=== PATIENT | male | born 1965 | race Caucasian/White ===

== ENCOUNTER 2016-11-21 05:39 | Outpatient (CLI) | payer OTHER ==
[~2016-11-21] VITALS: Ht 184.2 cm; Wt 104.3 kg
[2016-11-21] MEDS ORDERED: ASPI-586 PO ×2 (13:50)
[2016-11-21] MEDS ORDERED: VALS1TAB5 PO ×2 (13:50)
[2016-11-21] MEDS ORDERED: ROSU10TA PO ×2 (13:50)
== END 2016-11-21 13:52 ==
LOC: PREOP 05:39
PROVIDERS: ATTEND Surgery
DX: Z01.818 Encounter for other preprocedural examination; Z12.11 Encounter for screening for malignant neoplasm of colon

== ENCOUNTER 2016-11-23 08:32 | Day surgery (SDC) | payer OTHER ==
[~2016-11-23] VITALS: Ht 184.2 cm; Wt 104.3 kg
[~2016-11-23 08:32] MED LIST: ASPI-586 PO; ROSU10TA PO; VALS1TAB5 PO
[2016-11-23 08:35] VITALS: BP 125/88
--- OUTSIDE RECORDS SUMMARY | 2016-11-23 08:36 | XMS REPORT | Continuity of Care Document ---
Author Author [facility] Organization [facility] Address Unknown Phone Unavailable Care Team Providers [facility] Worker Name Role Phone AlexanderShon ospina PCP [phone] Source Comments Some departments are not documenting in the electronic medical record. If you do not see the information that you expected, contact Release of Information in the Health Information Management department at [phone] for further assistance in locating additional records.[facility] Active Allergies and Adverse Reactions Allergen Noted Date Severity Reactions Comments Naproxen 06/12/2015 Low SEE COMMENTS Swollen Joints Current Medications Prescription Sig. Disp. Refills Start End Date Status Date rosuvastatin (CRESTOR) 10 Take 10 mg by mouth Active mg tablet daily. valsartan (DIOVAN) 160 mg Take 160 mg by mouth Active tablet daily. Active Problems Problem Noted Date Sleep apnea 06/15/2015 HTN (hypertension) 06/12/2015 Hypercholesteremia 06/12/2015 Palpitation 06/12/2015 Overview: 06/12/2015 - 48 hr Holter - started 06/12/2015 Social History Tobacco Use Types Packs/Day Years Used Date Never Smoker Alcohol Use Drinks/Week oz/Week Comments Yes socially Last Filed Vital Signs Vital Sign Reading Time Taken Blood Pressure 116/86 10/02/2015 10:01 AM CDT Pulse 84 10/02/2015 9:56 AM CDT Temperature - - Respiratory Rate - - Height 1.829 m (6' 0.01") 10/02/2015 9:56 AM CDT Weight 104.146 kg (229 lb 9.6 10/02/2015 9:56 AM CDT oz) Body Mass Index 31.13 10/02/2015 9:56 AM CDT Oxygen Saturation 98% 10/02/2015 9:56 AM CDT Plan of Care Health Maintenance Due Date Last Done Comments Physical (Comprehensive) 1972 Exam Pertussis Vaccine 1976 Tetanus Vaccine 1982 Colorectal Cancer 12/09/2015 Screening Influenza Vaccine 01/13/2017 Results from Last 3 Months Not on file
--- OUTSIDE RECORDS SUMMARY | 2016-11-23 08:36 | XMS REPORT | Continuity of Care Document ---
Author Author [facility] Organization [facility] Address Unknown Phone Unavailable Allergies Medications Problems Date Dx Coded Attending Type Code Diagnosis Diagnosed By 06/08/2015 GUTIERREZ DO, EDIS L Ot R00.2 PALPITATIONS 06/15/2015 GUTIERREZ DO, EDIS L Ot R00.2 07/23/2015 GUTIERREZ DO, EDIS L Ot R00.2 09/10/2015 GUTIERREZ DO, EDIS L Ot R00.2 PALPITATIONS 09/16/2015 GUTIERREZ DO, EDIS L Ot R00.2 PALPITATIONS 11/16/2016 Ot 722.4 CERVICAL DISC DEGEN 11/16/2016 JAIDA LIZ MD R Ot 789.00 ABDOMINAL PAIN, UNSPECIFIED SITE 11/16/2016 GUTIERREZ DO, EDIS L Ot R00.2 PALPITATIONS 11/17/2016 Ot 722.4 CERVICAL DISC DEGEN 11/17/2016 JAIDA LIZ MD R Ot 789.00 ABDOMINAL PAIN, UNSPECIFIED SITE 11/17/2016 GUTIERREZ DO, EDIS L Ot R00.2 PALPITATIONS Procedures Results Encounters ACCT No. Visit Date/Time Discharge Status Pt. Type Provider Facility Loc./Unit Complaint [id number] 06/12/2015 08:12:00 2015 00:01:00 DIS Outpatient GUTIERREZ DO, EDIS L [facility] CARD PALPITATIONS [id number] 06/08/2015 16:17:00 2015 17:51:00 DIS Emergency GUTIERREZ DO, EDIS L [facility] ER CHEST TIGHTNESS;IRREGULAR HEART BEAT [id number] 12/24/2013 10:19:00 2013 23:59:59 CLS Outpatient JAIDA LIZ MD [facility] RAD R FLANK PAIN [id number] 11/23/2016 09:30:00 PEN Preadmit TATE TRIPATHI MD [facility] ENDO SCREENING [id number] 09/11/2015 08:00:00 PEN Preadmit EDIS GUTIERREZ DO [facility] CARD PALPITATIONS [id number] 08/16/2011 10:56:00 Document Registration
[2016-11-23] MEDS ORDERED: NS IV 500 ML 500 ML IV PRN (08:45)
[2016-11-23] MEDS ORDERED: LIDOCAINE JELLY 2% (XYLOCAINE) 5 ML TUBE MM PRN (08:45)
[2016-11-23] MEDS ORDERED: LIDOCAINE JELLY 2% (XYLOCAINE) 5 ML TUBE ONE (10:04)
[2016-11-23] MEDS ORDERED: fentaNYL INJECTION 100 MCG/2 ML AMP ONE ×2 (10:04)
[2016-11-23] MEDS ORDERED: MIDAZOLAM 2 MG/2 ML (VERSED) VIAL ONE ×4 (10:04→10:05)
[2016-11-23] MEDS: fentaNYL INJECTION 100 MCG/2 ML AMP IVP PRN ×2 (10:09→10:11)
[2016-11-23] MEDS: MIDAZOLAM 2 MG/2 ML (VERSED) VIAL IVP PRN ×4 (10:10→10:20)
--- NOTE | 2016-11-23 10:39 | Conscious Sedation/ASA ---
Conscious Sedation Pre-Proced Time Reviewed: 09:45 ASA Class: 2 Airway Mallampati Classification: (tyonek appropriate class) I. II. III, IV Lungs Heart ASA score ASA 1: a normal healthy patient ASA 2: a patient with a mild systemic disease (mid diabetes, controlled hypertension, obesity ASA 3: a patient with a severe systemic disease that limits activity (angina , COPD, prior Myocardial infarction) ASA 4: a patient with an incapacitating disease that is a constant threat to life (CHF, renal failure) ASA 5: a moribund patient not expected to survive 24 hrs. (ruptured aneurysm) ASA 6: a declared brain patient whose organs are being harvested. For emergent operations, add the letter E after the classification Grade 2 Sedation Plan: Analgesia, Amnesia, Plan communicated to team members, Discussed options with patient/fam, Discussed risks with patient/fam Note The patient is an appropriate candidate to undergo the planned procedure, sedation, and anesthesia. The patient immediately re-assessed prior to indication. TATE TRIPATHI MD Nov 23, 2016 10:39 am
--- NOTE | 2016-11-23 10:40 | Progress Note-Pre Operative ---
Pre-Operative Progress Note H&P Reviewed The H&P was reviewed, patient examined and no changes noted. Date Seen by Provider: Nov 23, 2016 Time Seen by Provider: :45 Date H&P Reviewed: Nov 23, 2016 Time H&P Reviewed: :45 Pre-Operative Diagnosis: screening colonoscopy TATE TRIPATHI MD Nov 23, 2016 10:40 am
--- NOTE | 2016-11-23 10:41 | Progress Note-Post Operative ---
Post-Operative Progess Note Surgeon (s)/Gandy Dancer (s) Surgeon TATE TRIPATHI MD Gandy Dancer: none Pre-Operative Diagnosis screening colonoscopy Post-Operative Diagnosis mild sigmoid diverticulosis. Procedure & Operative Findings Date of Procedure 11/23/16 Procedure Performed/Findings Colonoscopy. Anesthesia Type CS Estimated Blood Loss Estimated blood loss (mL): minimal Specimens/Packing Specimens Removed none TATE TRIPATHI MD Nov 23, 2016 10:41 am
--- NOTE | 2016-11-23 10:43 | Discharge Inst-Surgical ---
D/C Lap Instructions-DEUCE Follow Up 10 years Activity as tolerated Regular Diet Symptoms to Report: Fever over 101 degree F, Nausea/Vomiting Infection Signs and Symptoms to report: Increased redness, Foul odor of wound, Increased drainage Bathing instructions: May shower Operative Area Clean/Dry; Keep incision clean/dry If any problems/questions: Contact your physician or go to Emergency Room TATE TRIPATHI MD Nov 23, 2016 10:43 am
[2016-11-23] MEDS ORDERED: ACETAMINOPHEN 325 MG TABLET/CAPLET (TYLENOL) PO PRN (10:45)
[2016-11-23] MEDS ORDERED: morphine INJ 10 MG/ML 1ML (SYR OR VIAL) IV PRN (10:45)
[2016-11-23] MEDS ORDERED: ONDANSETRON 4 MG/2 ML (SDV) Z0FRAN IV PRN (10:45)
[2016-11-23] MEDS ORDERED: HYDROcodone/APAP 5 MG/325 MG (LORTAB) TAB PO PRN (10:45)
[2016-11-23 10:55] VITALS: BP 109/71
[2016-11-23 11:15] VITALS: BP 117/83
[2016-11-23 11:25] VITALS: BP 117/83
--- NOTE | 2016-11-24 12:04 | PROCEDURE REPORT ---
PROCEDURE PHYSICIAN: TATE QUESADA DATE OF PROCEDURE: 11/23/2016 ATTENDING PRIMARY CARE PHYSICIAN: Dr. Chau PREOPERATIVE DIAGNOSIS: Screening colonoscopy. POSTOPERATIVE DIAGNOSIS: Mild sigmoid diverticulosis. PROCEDURE: Colonoscopy. SURGEON: Dr. Quesada. ANESTHESIA: Conscious sedation. ESTIMATED BLOOD LOSS: Minimal. FINDINGS: Mild sigmoid diverticulosis with no mucosal inflammatory changes. The remainder of the colon was normal. There were no polyps identified. The patient tolerated the procedure well. DISPOSITION: Semaj Davis is a 50-year-old male in need of a screening colonoscopy. He reports that he has not had a colonoscopy up to this point in his life. He is doing well and states that he has not had any major issues with diarrhea or constipation, as well as no red blood per rectum nor any dark tarry stools. He also reports that he has normal soft bowel movements on a daily basis. He does not report any family history of colon cancer. The patient was brought to the endoscopy suite, laid in the left lateral decubitus position. After adequate IV pain and sedative medications and conscious sedation anesthesia, a digital rectal examination was performed. No identifiable hemorrhoids were identified. Normal sphincter tone was felt and there were no palpable masses. Prostate gland was palpable and appeared normal. The endoscope was then intubated into the anus and the rectum gently insufflated. The endoscope was then advanced through the valves of Rahman of the rectum with no polyps or any neoplasms identified. The endoscope was then advanced through the sigmoid colon where a few small isolated diverticula were identified. There were no mucosal inflammatory changes to indicate any diverticulitis. The endoscope was then advanced through the remainder of the descending, transverse, and ascending colon to the cecum. These segments were normal. There were no polyps or any neoplasms identified throughout the colon or rectum. The endoscope was then slowly withdrawn while taking a second look and suctioning residual air with no additional findings. The patient tolerated the procedure well. We will recommend continued medical management with a high fiber diet with at least 30 grams of fiber per day, as well as 64 fluid ounces of water daily to promote soft stools on a daily basis. He does not need another colonoscopy for another 10 years. Job ID: [id number] Dictated Date: 11/23/2016 10:40:19 Brim Plater Date: 11/24/2016 11:54:03 / harry
== END 2016-11-23 11:25 | disposition home or self-care (01) ==
LOC: ENDO 08:32
PROVIDERS: ATTEND Surgery
DX: Z12.11 Encounter for screening for malignant neoplasm of colon (principal); K57.30 Diverticulosis of large intestine without perforation or abscess without bleeding; I10 Essential (primary) hypertension; E78.00 Pure hypercholesterolemia, unspecified; Z79.899 Other long term (current) drug therapy